=== PATIENT | male | born 1950 | race Caucasian/White ===

== ENCOUNTER 2021-12-10 06:17 | Emergency (ER) | payer BC ==
[~2021-12-10 06:17] MED LIST: CLEOCIN HCL300 MG PO; NORCO 5-325 TA1 EACH PO; ZOVIRAX 800 MG800 MG PO
[2021-12-10 06:58] LABS: HEMOGLOBIN 14.7 gm/dl (14.0-17.5); RED BLOOD COUNT 4.83 M/UL (4.20-5.50); WHITE BLOOD COUNT 9.9 K/UL (4.5-11.0)
[2021-12-10 07:19] LABS: BUN/CREATININE RATIO 15 (0-10)
[2021-12-10] MEDS ORDERED: MELOXICAM15 MG PO (09:03)
[2021-12-10] MEDS ORDERED: LIDOCAINE PAIN1 EACH TP (09:03)
== END 2021-12-10 09:20 | disposition home or self-care (01) ==
LOC: ER1 06:17
PROVIDERS: Family Medicine
DX: S20.211A Contusion of right front wall of thorax, initial encounter (principal); I10 Essential (primary) hypertension; F17.210 Nicotine dependence, cigarettes, uncomplicated; Z88.0 Allergy status to penicillin; W01.0XXA Fall on same level from slipping, tripping and stumbling without subsequent striking against object, initial encounter; Y92.009 Unspecified place in unspecified non-institutional (private) residence as the place of occurrence of the external cause
CPT/HCPCS: 71250; 80053; 82550; 82553; 83605; 83690; 84484; 85025; 96374; 99284; J1885